=== PATIENT | female | born 1960 | race Two or more races ===

== ENCOUNTER 2020-02-15 02:17 | Inpatient (IN) | payer BC, MEDICAID ==
[~2020-02-15] VITALS: Ht 162.6 cm; Wt 59.1 kg
[2020-02-15] VITALS (10 sets, daily range): BP systolic 133–189; BP diastolic 63–106
--- NOTE | 2020-02-15 02:20 | NUR ---
PT CONTINUED ON NITRO GTT RUNNING AT 200MCG/MIN. SBP in the 200S. AWARE. NICARDIPINE GTT TO BE STARTED. OTHER VSS. PT HAS NO COMPLAINTS.
[2020-02-15] MEDS ORDERED: PLEASE ENTER ALLERGIES MC SCH (02:30)
[2020-02-15] MEDS ORDERED: NITROGLYCERIN/D5W PMX 250 ML IV PRN ×2 (02:30→04:30)
[2020-02-15] MEDS ORDERED: SODIUM CHLORIDE FLUSH 10ML SYR IVF ONE (02:30)
--- NOTE | 2020-02-15 02:46 | NUR ---
PIV PLACED IN R EJ. NICARDIPINE GTT STARTED AT 2.5MG/MIN. WCTM.
[2020-02-15 03:10] LABS: BASOPHILS % (AUTO) 1 % (0-1); EOSINOPHILS % (AUTO) 2 % (1-7); LYMPHOCYTES % (AUTO) 14 % (22-44); MEAN CORPUSCULAR HEMOGLOBIN 29.2 pg (27.0-34.8); MEAN CORPUSCULAR HGB CONC 31.5 g/dL (32.4-35.8); MEAN PLATELET VOLUME 7.5 fL (7.4-10.4); MONOCYTES % (AUTO) 9 % (2-9); NEUTROPHILS % (AUTO) 75 % (42-75); PLATELET COUNT 797 x10^3/uL (130-400); RED BLOOD COUNT 1.93 x10^6/uL (3.82-5.3); RED CELL DISTRIBUTION WIDTH 18.3 % (9.6-15.2)
[2020-02-15 03:14] LABS: ALANINE AMINOTRANSFERASE 14 U/L (12-78); ALBUMIN 2.6 g/dL (3.4-5.0); ANION GAP 16 mmol/L (5-15); CALCIUM 7.8 mg/dL (8.5-10.1); CHLORIDE 113 mmol/L (98-107)
--- NOTE | 2020-02-15 03:15 | NUR ---
VERBALIZED WITH EDMD BP GOALS. KEEP SBP <180. WCTM.
[2020-02-15 03:25] LABS: ALKALINE PHOSPHATASE 97 U/L (45-117); BILIRUBIN,TOTAL 0.4 mg/dL (0.2-1.0); T4 (THYROXINE) 9.6 mcg/dL (4.8-13.9); TOTAL PROTEIN 6.7 g/dL (6.4-8.2)
[2020-02-15 03:27] LABS: MD SCAN
[2020-02-15 03:38] LABS: TROPONIN I 0.025 ng/mL (0.000-0.045)
--- NOTE | 2020-02-15 03:59 | NUR ---
SYLVESTER CATHETER PLACED FOR STRICT I&Os PER MD ORDER. STERILE TECHNIQUE. PT TOLERATED WELL.
[2020-02-15] MEDS ORDERED: FUROSEMIDE 40 MG/4 ML IV ONE (04:00)
--- NOTE | 2020-02-15 04:08 | NUR ---
BP 133/77. PT ON 5MG/MIN NICARDIPINE AND 200MCG/MIN NITROGLYCERINE. ADMITTING MD AT BS. ADMITTING KEEP SBP BETWEEN 130-160, TITRATE GTTS ACCORDINGLY. WCTM.
--- NOTE | 2020-02-15 04:14 | NUR ---
PT CURRENTLY TAKING NO PRESCRIPTION MEDICATIONS AT HOME. PT DOES NOT REMEMBER HER BP MEDICATIONS SHE STOPPED TAKING LAST MARCH.
[2020-02-15] MEDS ORDERED: FUROSEMIDE 40 MG/4 ML ONE (04:17)
[2020-02-15] MEDS ORDERED: ZOLPIDEM 5MG TABLET PO PRN (04:30)
[2020-02-15] MEDS ORDERED: DIPHENHYDRAMINE 50 MG/ML, 1ML IVPush SCH (04:30)
[2020-02-15] MEDS ORDERED: GUAIFENESIN/DM 200-20MG, 10ML UDC PO PRN (04:30)
[2020-02-15] MEDS ORDERED: HYDROcodone/APAP 5/325 TABLET PO PRN (04:30)
[2020-02-15] MEDS ORDERED: ENALAPRILAT 1.25 MG/ML, 2ML IVPush PRN (04:30)
[2020-02-15] MEDS ORDERED: ACETAMINOPHEN 325 MG TABLET PO PRN (04:30)
[2020-02-15] MEDS ORDERED: METHOCARBAMOL 500 MG TABLET PO PRN (04:30)
[2020-02-15] MEDS ORDERED: morphine SULFATE 10 MG/ML, 1ML IVPush PRN (04:30)
[2020-02-15] MEDS ORDERED: ONDANSETRON 2MG/ML, 2ML IVPush PRN (04:30)
[2020-02-15 04:59] LABS: INTERNATIONAL NORMALIZED RATIO 1.5 (0.93-1.1); PROTHROMBIN TIME 15.8 Seconds (9.6-11.5)
[2020-02-15] MEDS ORDERED: NITROGLYCERIN/D5W PMX 250 ML ONE (05:07)
--- NOTE | 2020-02-15 05:25 | NUR ---
Report given to MILTON Ng.
[2020-02-15] MEDS: HEPARIN 5,000 UNITS/ML, 1ML SQ SCH ×3 (07:10→18:06)
[2020-02-15] MEDS: CARVEDILOL 6.25 MG TABLET PO SCH ×2 (07:10→18:06)
[2020-02-15] MEDS: DOXAZOSIN 2MG TABLET PO SCH (08:39)
[2020-02-15] MEDS ORDERED: LABETALOL 5MG/ML, 20ML ONE (12:02)
[2020-02-15] MEDS: LABETALOL 5MG/ML, 20ML IVPush PRN ×2 (12:07→17:03)
[2020-02-15] MEDS ORDERED: ERGOCALCIFEROL 50,000 UNIT CAPSULE PO SCH (14:30)
[2020-02-16 01:55] VITALS: BP 154/89
[2020-02-16 04:27] VITALS: BP 139/76
[2020-02-16 04:32] LABS: BASOPHILS % (AUTO) 1 % (0-1); EOSINOPHILS % (AUTO) 1 % (1-7); LYMPHOCYTES % (AUTO) 10 % (22-44); MEAN CORPUSCULAR HEMOGLOBIN 30.5 pg (27.0-34.8); MEAN CORPUSCULAR HGB CONC 34.5 g/dL (32.4-35.8); MEAN PLATELET VOLUME 7.6 fL (7.4-10.4); MONOCYTES % (AUTO) 9 % (2-9); NEUTROPHILS % (AUTO) 79 % (42-75); PLATELET COUNT 506 x10^3/uL (130-400); RED BLOOD COUNT 2.55 x10^6/uL (3.82-5.3); RED CELL DISTRIBUTION WIDTH 16.3 % (9.6-15.2)
[2020-02-16 04:40] LABS: % IRON SATURATION 49 % (20-55); ALBUMIN 2.5 g/dL (3.4-5.0); ANION GAP 8 mmol/L (5-15); CALCIUM 7.9 mg/dL (8.5-10.1); CHLORIDE 107 mmol/L (98-107); CREATININE 7.11 mg/dL (0.55-1.02); IRON LEVEL 69 mcg/dL (50-170); TOTAL IRON BINDING CAPACITY 142 mcg/dL (250-450)
[2020-02-16 05:56] LABS: MD SCAN
[2020-02-16] MEDS: CARVEDILOL 6.25 MG TABLET PO SCH ×2 (06:12→17:24)
[2020-02-16 07:57] VITALS: BP 161/91
[2020-02-16] MEDS: DOXAZOSIN 2MG TABLET PO SCH (08:48)
[2020-02-16] MEDS: HEPARIN 5,000 UNITS/ML, 1ML SQ SCH ×2 (08:49→21:20)
[2020-02-16 12:13] VITALS: BP 190/109
[2020-02-16] MEDS: LABETALOL 5MG/ML, 20ML IVPush PRN ×2 (12:13→17:24)
[2020-02-16 13:19] VITALS: BP 171/96
[2020-02-16] MEDS: DOCUSATE 100 MG CAPSULE PO PRN (17:23)
[2020-02-16 20:22] VITALS: BP 162/91
[2020-02-17 01:52] VITALS: BP 209/119
[2020-02-17] MEDS: LABETALOL 5MG/ML, 20ML IVPush PRN ×5 (01:59→17:44)
[2020-02-17 02:29] VITALS: BP 155/98
[2020-02-17] MEDS: CARVEDILOL 6.25 MG TABLET PO SCH (04:56)
[2020-02-17 07:14] LABS: ANION GAP 6 mmol/L (5-15); CALCIUM 7.5 mg/dL (8.5-10.1); CHLORIDE 106 mmol/L (98-107)
[2020-02-17 07:16] LABS: CREATININE 5.57 mg/dL (0.55-1.02)
[2020-02-17 08:07] VITALS: BP 210/114
[2020-02-17] MEDS: CALCITRIOL 0.5 MCG CAPSULE PO SCH (08:44)
[2020-02-17] MEDS: DOXAZOSIN 2MG TABLET PO SCH (08:46)
[2020-02-17] MEDS: HEPARIN 5,000 UNITS/ML, 1ML SQ SCH ×2 (08:46→20:11)
[2020-02-17] MEDS ORDERED: PHYTONADIONE 10 MG/ML, 1ML SQ ONE ×2 (10:30→13:00)
[2020-02-17] MEDS: AMLODIPINE 5 MG TABLET PO SCH (11:40)
[2020-02-17 11:50] LABS: INTERNATIONAL NORMALIZED RATIO 1.01 (0.93-1.1); PROTHROMBIN TIME 10.7 Seconds (9.6-11.5)
[2020-02-17 15:21] VITALS: BP 177/88
[2020-02-17] MEDS: FUROSEMIDE 80 MG TABLET PO SCH (17:44)
[2020-02-17] MEDS: CARVEDILOL 12.5 MG TABLET PO SCH (17:44)
[2020-02-17 19:35] VITALS: BP 162/80
[2020-02-18 01:34] VITALS: BP 165/81
[2020-02-18 05:49] VITALS: BP 186/94
[2020-02-18] MEDS: CARVEDILOL 12.5 MG TABLET PO SCH (05:53)
[2020-02-18 06:30] VITALS: BP 192/89
[2020-02-18 06:40] LABS: BASOPHILS % (AUTO) 1 % (0-1); EOSINOPHILS % (AUTO) 2 % (1-7); LYMPHOCYTES % (AUTO) 12 % (22-44); MEAN CORPUSCULAR HEMOGLOBIN 29.8 pg (27.0-34.8); MEAN PLATELET VOLUME 8.1 fL (7.4-10.4); MONOCYTES % (AUTO) 9 % (2-9); NEUTROPHILS % (AUTO) 77 % (42-75); PLATELET COUNT 431 x10^3/uL (130-400); RED BLOOD COUNT 2.54 x10^6/uL (3.82-5.3); RED CELL DISTRIBUTION WIDTH 17.2 % (9.6-15.2)
[2020-02-18 06:44] LABS: ANION GAP 11 mmol/L (5-15); CALCIUM 7.2 mg/dL (8.5-10.1); CHLORIDE 104 mmol/L (98-107); CREATININE 6.64 mg/dL (0.55-1.02)
[2020-02-18] MEDS: HEPARIN 5,000 UNITS/ML, 1ML SQ SCH ×2 (07:27→20:50)
[2020-02-18] MEDS: CALCITRIOL 0.5 MCG CAPSULE PO SCH (07:35)
[2020-02-18] MEDS: DOXAZOSIN 2MG TABLET PO SCH (07:36)
[2020-02-18] MEDS: FUROSEMIDE 80 MG TABLET PO SCH ×2 (07:38→17:04)
[2020-02-18] MEDS: AMLODIPINE 5 MG TABLET PO SCH (07:39)
[2020-02-18 07:59] LABS: MD SCAN
[2020-02-18] MEDS: LABETALOL 100 MG TABLET PO SCH ×2 (08:00→17:04)
[2020-02-18] MEDS: AMLODIPINE 10 MG TAB PO SCH (08:43)
[2020-02-18] MEDS ORDERED: POTASSIUM CHLORIDE 20 MEQ TAB.ER.PRT PO ONE (10:00)
[2020-02-18 12:47] VITALS: BP 131/99
[2020-02-18] MEDS ORDERED: LIDOCAINE 1%, 20ML ONE (13:13)
[2020-02-18] MEDS ORDERED: MIDAZOLAM 1 MG/ML, 5ML ONE (13:19)
[2020-02-18] MEDS ORDERED: FENTANYL PF 100 MCG/2ML ONE (13:19)
[2020-02-18] MEDS ORDERED: CEFAZOLIN PMX 1GM/50ML 50 ML ONE (13:19)
[2020-02-18] MEDS ORDERED: LIDOCAINE 1%, 10ML ONE (13:52)
[2020-02-18] MEDS ORDERED: POTASSIUM CHLORIDE 20 MEQ TAB.ER.PRT ONE (14:19)
[2020-02-18 20:19] VITALS: BP 147/81
[2020-02-19 00:47] VITALS: BP 159/89
[2020-02-19 06:19] VITALS: BP 143/89
[2020-02-19 06:56] VITALS: BP 159/74
[2020-02-19] MEDS: CALCITRIOL 0.5 MCG CAPSULE PO SCH (07:56)
[2020-02-19] MEDS: DOXAZOSIN 2MG TABLET PO SCH (07:56)
[2020-02-19] MEDS: AMLODIPINE 10 MG TAB PO SCH (07:57)
[2020-02-19] MEDS: LABETALOL 100 MG TABLET PO SCH ×2 (07:57→16:23)
[2020-02-19] MEDS: HEPARIN 5,000 UNITS/ML, 1ML SQ SCH ×2 (07:57→21:39)
[2020-02-19 08:46] LABS: BASOPHILS % (AUTO) 1 % (0-1); EOSINOPHILS % (AUTO) 1 % (1-7); LYMPHOCYTES % (AUTO) 11 % (22-44); MEAN CORPUSCULAR HEMOGLOBIN 30.6 pg (27.0-34.8); MEAN CORPUSCULAR HGB CONC 33.3 g/dL (32.4-35.8); MEAN PLATELET VOLUME 8.4 fL (7.4-10.4); MONOCYTES % (AUTO) 10 % (2-9); NEUTROPHILS % (AUTO) 78 % (42-75); PLATELET COUNT 436 x10^3/uL (130-400); RED BLOOD COUNT 2.65 x10^6/uL (3.82-5.3); RED CELL DISTRIBUTION WIDTH 16.4 % (9.6-15.2)
[2020-02-19 09:11] LABS: ANION GAP 8 mmol/L (5-15); CHLORIDE 108 mmol/L (98-107); CREATININE 4.58 mg/dL (0.55-1.02)
[2020-02-19 09:48] LABS: MD MORPH REVIEW ONLY
[2020-02-19 09:49] LABS: <PLATELET ESTIMATE> INCREASED; HYPOGRAN PLTS 1+
[2020-02-19 09:50] LABS: ANISOCYTOSIS 1+; LARGE PLATELETS 2+
[2020-02-19 12:10] VITALS: BP 133/77
[2020-02-19] MEDS: FUROSEMIDE 80 MG TABLET PO SCH (16:23)
[2020-02-19 18:45] VITALS: BP 110/62
[2020-02-20 01:51] VITALS: BP 145/81
[2020-02-20 07:13] VITALS: BP 163/82
[2020-02-20] MEDS: AMLODIPINE 10 MG TAB PO SCH (08:52)
[2020-02-20] MEDS: LABETALOL 100 MG TABLET PO SCH ×2 (08:55→18:07)
[2020-02-20] MEDS: FUROSEMIDE 80 MG TABLET PO SCH ×2 (08:56→17:00)
[2020-02-20] MEDS: HEPARIN 5,000 UNITS/ML, 1ML SQ SCH ×2 (08:56→20:53)
[2020-02-20] MEDS: CALCITRIOL 0.5 MCG CAPSULE PO SCH (08:56)
[2020-02-20] MEDS: DOXAZOSIN 2MG TABLET PO SCH (08:56)
[2020-02-20 11:20] VITALS: BP 110/64
[2020-02-20 13:01] VITALS: BP 136/76
[2020-02-20 20:44] VITALS: BP 149/74
[2020-02-21] VITALS (9 sets, daily range): BP systolic 97–125; BP diastolic 62–76
[2020-02-21 05:15] LABS: BASOPHILS % (AUTO) 1 % (0-1); EOSINOPHILS % (AUTO) 1 % (1-7); LYMPHOCYTES % (AUTO) 9 % (22-44); MEAN CORPUSCULAR HEMOGLOBIN 30.1 pg (27.0-34.8); MEAN CORPUSCULAR HGB CONC 33.1 g/dL (32.4-35.8); MEAN PLATELET VOLUME 8.1 fL (7.4-10.4); MONOCYTES % (AUTO) 12 % (2-9); NEUTROPHILS % (AUTO) 78 % (42-75); PLATELET COUNT 399 x10^3/uL (130-400)
[2020-02-21 05:29] LABS: ANION GAP 6 mmol/L (5-15); CALCIUM 8.5 mg/dL (8.5-10.1); CHLORIDE 103 mmol/L (98-107); CREATININE 3.88 mg/dL (0.55-1.02); MD NO
[2020-02-21] MEDS: AMLODIPINE 10 MG TAB PO SCH (09:45)
[2020-02-21] MEDS: FUROSEMIDE 80 MG TABLET PO SCH ×2 (09:45→17:52)
[2020-02-21] MEDS: CALCITRIOL 0.5 MCG CAPSULE PO SCH (09:45)
[2020-02-21] MEDS: DOXAZOSIN 2MG TABLET PO SCH (09:46)
[2020-02-21] MEDS: LABETALOL 100 MG TABLET PO SCH ×2 (09:59→17:49)
[2020-02-21] MEDS: HEPARIN 5,000 UNITS/ML, 1ML SQ SCH ×2 (09:59→21:41)
[2020-02-21] MEDS: DOCUSATE 100 MG CAPSULE PO PRN (21:43)
[2020-02-22] VITALS (7 sets, daily range): BP systolic 100–127; BP diastolic 59–75
[2020-02-22] MEDS: FUROSEMIDE 80 MG TABLET PO SCH (07:37)
[2020-02-22] MEDS: HEPARIN 5,000 UNITS/ML, 1ML SQ SCH ×2 (07:37→21:32)
[2020-02-22] MEDS: LABETALOL 100 MG TABLET PO SCH (08:29)
[2020-02-22] MEDS: AMLODIPINE 10 MG TAB PO SCH (13:06)
[2020-02-22] MEDS: DOXAZOSIN 2MG TABLET PO SCH (13:06)
[2020-02-22] MEDS: DOCUSATE 100 MG CAPSULE PO PRN (15:53)
[2020-02-23 01:06] VITALS: BP 133/63
[2020-02-23 05:02] LABS: ANION GAP 9 mmol/L (5-15); CALCIUM 8.8 mg/dL (8.5-10.1); CHLORIDE 102 mmol/L (98-107)
[2020-02-23 05:03] LABS: CREATININE 4.88 mg/dL (0.55-1.02)
[2020-02-23 07:22] VITALS: BP 127/78
[2020-02-23] MEDS: AMLODIPINE 10 MG TAB PO SCH (08:25)
[2020-02-23] MEDS: LABETALOL 100 MG TABLET PO SCH (08:25)
[2020-02-23] MEDS: HEPARIN 5,000 UNITS/ML, 1ML SQ SCH ×2 (08:25→21:28)
[2020-02-23 14:00] VITALS: BP 146/72
[2020-02-23] MEDS: DOCUSATE 100 MG CAPSULE PO PRN (15:37)
[2020-02-23 19:59] VITALS: BP 125/78
[2020-02-24 01:16] VITALS: BP 122/69
[2020-02-24 04:58] LABS: MEAN CORPUSCULAR HEMOGLOBIN 30.1 pg (27.0-34.8); MEAN CORPUSCULAR HGB CONC 33.4 g/dL (32.4-35.8); MEAN PLATELET VOLUME 8.6 fL (7.4-10.4); PLATELET COUNT 417 x10^3/uL (130-400); RED BLOOD COUNT 2.94 x10^6/uL (3.82-5.3); RED CELL DISTRIBUTION WIDTH 16.2 % (9.6-15.2)
[2020-02-24 05:05] LABS: ANION GAP 8 mmol/L (5-15); CALCIUM 8.7 mg/dL (8.5-10.1); CHLORIDE 101 mmol/L (98-107); CREATININE 7.11 mg/dL (0.55-1.02)
[2020-02-24 06:09] LABS: MD YES
[2020-02-24 06:12] LABS: <PLATELET ESTIMATE> INCREASED; ANISOCYTOSIS 1+; BASOS#(MANUAL) 0.17 x10^3/uL (0-0.1); BASOS% (MANUAL) 2 % (0-1); EOS#(MANUAL) 0.09 x10^3/uL (0.0-0.4); EOS% (MANUAL) 1 % (1-7); LARGE PLATELETS 1+; LYMPH#(MANUAL) 2.04 x10^3/uL (1-3.4); LYMPHS% (MANUAL) 24 % (22-44); MONOS#(MANUAL) 0.17 x10^3/uL (0.3-2.7); MONOS% (MANUAL) 2 % (2-9); OVALOCYTES 1+; SEG#(MANUAL) 6.04 x10^3/uL (1.8-6.8); SEGS% (MANUAL) 71 % (42-75)
[2020-02-24 07:40] VITALS: BP 119/81
[2020-02-24] MEDS: HEPARIN 5,000 UNITS/ML, 1ML SQ SCH ×2 (08:59→20:13)
[2020-02-24] MEDS: LABETALOL 100 MG TABLET PO SCH (08:59)
[2020-02-24] MEDS: AMLODIPINE 10 MG TAB PO SCH (08:59)
[2020-02-24 13:34] VITALS: BP 104/68
[2020-02-24 15:57] VITALS: BP 108/63
[2020-02-24 19:26] VITALS: BP 113/67
[2020-02-25 02:09] VITALS: BP 131/77
[2020-02-25 07:32] VITALS: BP 146/80
[2020-02-25 08:28] LABS: ANION GAP 10 mmol/L (5-15); CALCIUM 8.8 mg/dL (8.5-10.1); CHLORIDE 103 mmol/L (98-107); CREATININE 9.33 mg/dL (0.55-1.02)
[2020-02-25 08:35] LABS: BASOPHILS % (AUTO) 1 % (0-1); EOSINOPHILS % (AUTO) 0 % (1-7); LYMPHOCYTES % (AUTO) 9 % (22-44); MEAN CORPUSCULAR HEMOGLOBIN 29.7 pg (27.0-34.8); MEAN CORPUSCULAR HGB CONC 32.6 g/dL (32.4-35.8); MEAN PLATELET VOLUME 8.5 fL (7.4-10.4); MONOCYTES % (AUTO) 6 % (2-9); NEUTROPHILS % (AUTO) 83 % (42-75); PLATELET COUNT 298 x10^3/uL (130-400); RED BLOOD COUNT 3.11 x10^6/uL (3.82-5.3); RED CELL DISTRIBUTION WIDTH 15.7 % (9.6-15.2)
[2020-02-25 08:40] LABS: MD NO
[2020-02-25] MEDS: HEPARIN 5,000 UNITS/ML, 1ML SQ SCH ×2 (11:06→20:54)
[2020-02-25 12:40] VITALS: BP 116/76
[2020-02-25] MEDS: LABETALOL 100 MG TABLET PO SCH (13:02)
[2020-02-25] MEDS: AMLODIPINE 10 MG TAB PO SCH (13:02)
[2020-02-25 16:55] VITALS: BP 101/69
[2020-02-25 20:00] VITALS: BP 100/65
[2020-02-26 02:39] VITALS: BP 97/62
[2020-02-26 06:54] VITALS: BP 99/68
[2020-02-26] MEDS: HEPARIN 5,000 UNITS/ML, 1ML SQ SCH ×2 (08:43→20:32)
[2020-02-26 08:52] VITALS: BP 106/65
[2020-02-26] MEDS: LABETALOL 100 MG TABLET PO SCH (09:00)
[2020-02-26] MEDS: AMLODIPINE 10 MG TAB PO SCH (09:00)
[2020-02-26 12:12] VITALS: BP 114/78
[2020-02-26 17:22] VITALS: BP 104/65
[2020-02-26 19:19] VITALS: BP 100/70
[2020-02-27 00:58] VITALS: BP 116/78
[2020-02-27 06:51] VITALS: BP 91/62
[2020-02-27] MEDS: LABETALOL 100 MG TABLET PO SCH (09:00)
[2020-02-27] MEDS: AMLODIPINE 10 MG TAB PO SCH (09:00)
[2020-02-27] MEDS: HEPARIN 5,000 UNITS/ML, 1ML SQ SCH ×2 (10:12→21:24)
[2020-02-27 12:38] VITALS: BP 99/73
[2020-02-27] MEDS: DOCUSATE 100 MG CAPSULE PO PRN (21:20)
[2020-02-27 21:21] VITALS: BP 105/70
[2020-02-28] VITALS (7 sets, daily range): BP systolic 94–120; BP diastolic 60–85
[2020-02-28 04:51] LABS: BASOPHILS % (AUTO) 1 % (0-1); EOSINOPHILS % (AUTO) 1 % (1-7); LYMPHOCYTES % (AUTO) 15 % (22-44); MEAN CORPUSCULAR HGB CONC 32.8 g/dL (32.4-35.8); MONOCYTES % (AUTO) 11 % (2-9); NEUTROPHILS % (AUTO) 72 % (42-75); PLATELET COUNT 160 x10^3/uL (130-400); RED BLOOD COUNT 3.04 x10^6/uL (3.82-5.3); RED CELL DISTRIBUTION WIDTH 16.2 % (9.6-15.2)
[2020-02-28 04:59] LABS: MD NO
[2020-02-28 05:01] LABS: ALANINE AMINOTRANSFERASE 17 U/L (12-78); ALBUMIN 3.3 g/dL (3.4-5.0); ANION GAP 10 mmol/L (5-15); CALCIUM 9.2 mg/dL (8.5-10.1); CHLORIDE 106 mmol/L (98-107); CREATININE 5.13 mg/dL (0.55-1.02)
[2020-02-28 05:03] LABS: ALKALINE PHOSPHATASE 115 U/L (45-117); BILIRUBIN,TOTAL 0.9 mg/dL (0.2-1.0); TOTAL PROTEIN 7.9 g/dL (6.4-8.2)
[2020-02-28] MEDS: AMLODIPINE 10 MG TAB PO SCH (09:00)
[2020-02-28] MEDS: LABETALOL 100 MG TABLET PO SCH (09:00)
[2020-02-28] MEDS: HEPARIN 5,000 UNITS/ML, 1ML SQ SCH (10:51)
[2020-02-29 00:21] VITALS: BP 122/71
[2020-02-29] MEDS: HEPARIN 5,000 UNITS/ML, 1ML SQ SCH ×2 (00:23→09:00)
[2020-02-29 00:36] VITALS: BP 142/79
[2020-02-29] MEDS ORDERED: EPINEPHRINE 1 MG/ML, 1ML ONE ×2 (07:00→10:00)
[2020-02-29] MEDS ORDERED: EPINEPHRINE SYRINGE 0.1 MG/ML, 10ML ONE ×3 (07:00→10:00)
[2020-02-29 08:11] VITALS: BP 146/95
[2020-02-29] MEDS ORDERED: AMLODIPINE 5 MG TABLET PO SCH (09:00)
[2020-02-29] MEDS: EPINEPHRINE 5 MG in SODIUM CHLORIDE 0.9% 245 ML IV PRN (09:30)
[2020-02-29] MEDS: NOREPINEPHRINE 32 MG in SODIUM CHLORIDE 0.9% 218 ML IV PRN ×2 (09:35→15:43)
[2020-02-29] MEDS ORDERED: CODE BLUE RESPONSE XX ONE (09:45)
[2020-02-29] MEDS ORDERED: SODIUM BICARB 8.4%, 50ML SYRINGE ONE (09:45)
[2020-02-29] MEDS ORDERED: SUCCINYLCHOLINE 20 MG/ML, 10ML ONE (09:45)
[2020-02-29] MEDS ORDERED: CALCIUM CHLORIDE 10%, 10ML SYR ONE (09:45)
[2020-02-29] MEDS ORDERED: ETOMIDATE 20 MG/10 ML ONE (09:45)
[2020-02-29 09:48] LABS: MEAN CORPUSCULAR HEMOGLOBIN 29.4 pg (27.0-34.8); MEAN PLATELET VOLUME 8.1 fL (7.4-10.4); RED BLOOD COUNT 2.88 x10^6/uL (3.82-5.3); RED CELL DISTRIBUTION WIDTH 16.7 % (9.6-15.2)
[2020-02-29 09:59] LABS: MD YES; PLATELET COUNT 43 x10^3/uL (130-400)
[2020-02-29 10:00] LABS: ALANINE AMINOTRANSFERASE 184 U/L (12-78); ALBUMIN 2.6 g/dL (3.4-5.0); ANION GAP 17 mmol/L (5-15); CALCIUM 11.2 mg/dL (8.5-10.1); CHLORIDE 104 mmol/L (98-107); CREATININE 7.57 mg/dL (0.55-1.02)
[2020-02-29] MEDS ORDERED: SODIUM BICARB 8.4%, 50ML SYRINGE IVPush ONE (10:00)
[2020-02-29 10:01] LABS: ANISOCYTOSIS 1+; BAND#(MANUAL) 1.16 x10^3/uL; BANDS%(MANUAL) 8 % (0-7); LYMPH#(MANUAL) 8.85 x10^3/uL (1-3.4); LYMPHS% (MANUAL) 61 % (22-44); METAMYELOCYTES# (MANUAL) 0.29 x10^3/uL (0-0); METAMYELOCYTES% (MANUAL) 2 % (0-1); MONOS#(MANUAL) 0.29 x10^3/uL (0.3-2.7); MONOS% (MANUAL) 2 % (2-9); POLYCHROMASIA 1+; SEG#(MANUAL) 3.92 x10^3/uL (1.8-6.8); SEGS% (MANUAL) 27 % (42-75)
[2020-02-29 10:02] LABS: <PLATELET ESTIMATE> DECREASED; LARGE PLATELETS 1+; OVALOCYTES 1+
[2020-02-29 10:03] LABS: ALKALINE PHOSPHATASE 120 U/L (45-117); BILIRUBIN,TOTAL 0.6 mg/dL (0.2-1.0); TOTAL PROTEIN 6.5 g/dL (6.4-8.2)
[2020-02-29] MEDS ORDERED: PROPOFOL 100 ML IV ONE (10:05)
[2020-02-29] MEDS ORDERED: FENTANYL PF 100 MCG/2ML ONE (10:05)
[2020-02-29] MEDS: FENTANYL PF 100 MCG/2ML IVPush PRN ×3 (10:08→21:31)
[2020-02-29 11:54] LABS: FIBRINOGEN 254 mg/dL (200-340); PROTIME 11.7 Seconds (9.6-11.5); PTT 31 Seconds (25-31)
[2020-02-29 11:58] LABS: PLATELET (DIC) 41 x10^3/uL (130-400)
[2020-02-29] MEDS: INSULIN LISPRO 100 UNITS/ML, PEN SQ-INSULIN SCH ×3 (12:25→21:26)
[2020-02-29 12:40] LABS: D-DIMER (DIC) > 35.20 ug/mlFEU (0.00-0.52)
[2020-02-29] MEDS ORDERED: PHARMACOKINETIC CONSULTATION MC ONE (13:00)
[2020-02-29] MEDS ORDERED: VANCOMYCIN PER PHARMACY MC PRN (13:00)
[2020-02-29] MEDS ORDERED: PHARMACOKINETIC MONITORING MC PRN (13:00)
[2020-02-29 13:30] LABS: TRIGLYCERIDES 300 mg/dL (50-200)
[2020-02-29] MEDS ORDERED: VANCOMYCIN PMX 1GM/200ML 200 ML IV ONE (13:30)
[2020-02-29] MEDS ORDERED: NOREPINEPHRINE 8 MG in SODIUM CHLORIDE 0.9% 242 ML IV PRN (13:30)
[2020-02-29] MEDS ORDERED: LIDOCAINE-MPF 1%, 2ML ENDO PRN (13:30)
[2020-02-29] MEDS ORDERED: ONDANSETRON 2MG/ML, 2ML IV PRN (13:30)
[2020-02-29] MEDS ORDERED: PHARMACY MAY ADJ FOR RENAL FX MC SCH (13:30)
[2020-02-29] MEDS ORDERED: GLUCAGON 1 MG IM PRN (13:30)
[2020-02-29] MEDS ORDERED: DEXTROSE 4 GM TAB.CHEW PO PRN (13:30)
[2020-02-29] MEDS: PIPERACILLIN/TAZO/PMX 2.25GM 50 ML IVPB SCH ×2 (13:33→21:26)
[2020-02-29] MEDS: PROPOFOL 100 ML IV PRN (13:36)
[2020-02-29] MEDS: DEXTROSE 50%, 50ML SYRINGE IVPush PRN (20:58)
[2020-02-29] MEDS: SODIUM CHLORIDE FLUSH 10ML SYR IVF SCH (20:59)
[2020-02-29] MEDS ORDERED: VASOPRESSIN 20 UNIT in SODIUM CHLORIDE 0.9% 99 ML IV PRN (21:30)
[2020-03-01] MEDS: FENTANYL PF 100 MCG/2ML IVPush PRN ×5 (01:36→22:34)
[2020-03-01 04:00] VITALS: BP 82/57
[2020-03-01] MEDS: INSULIN LISPRO 100 UNITS/ML, PEN SQ-INSULIN SCH ×4 (04:00→22:00)
[2020-03-01 04:28] LABS: MEAN CORPUSCULAR HEMOGLOBIN 29.2 pg (27.0-34.8); MEAN CORPUSCULAR HGB CONC 32.1 g/dL (32.4-35.8); MEAN PLATELET VOLUME 10.2 fL (7.4-10.4); PLATELET COUNT 111 x10^3/uL (130-400); RED BLOOD COUNT 2.94 x10^6/uL (3.82-5.3); RED CELL DISTRIBUTION WIDTH 16.1 % (9.6-15.2)
[2020-03-01 04:38] LABS: ALANINE AMINOTRANSFERASE 775 U/L (12-78); ALBUMIN 2.6 g/dL (3.4-5.0); ALKALINE PHOSPHATASE 126 U/L (45-117); ANION GAP 14 mmol/L (5-15); BILIRUBIN, DIRECT 0.6 mg/dL (0.1-0.2); BILIRUBIN,INDIRECT 0.8 mg/dL (0.0-2.0); BILIRUBIN,TOTAL 1.4 mg/dL (0.2-1.0); CALCIUM 8.9 mg/dL (8.5-10.1); CHLORIDE 101 mmol/L (98-107); CREATININE 9.36 mg/dL (0.55-1.02); TOTAL PROTEIN 6.6 g/dL (6.4-8.2); VANCOMYCIN,RANDOM 29.7 mcg/mL
[2020-03-01] MEDS: PIPERACILLIN/TAZO/PMX 2.25GM 50 ML IVPB SCH ×3 (05:38→20:27)
[2020-03-01] MEDS: NOREPINEPHRINE 32 MG in SODIUM CHLORIDE 0.9% 218 ML IV PRN ×2 (05:58→20:27)
[2020-03-01 06:15] LABS: MD YES
[2020-03-01 06:19] LABS: BANDS%(MANUAL) 23 % (0-7); BASOS% (MANUAL) 1 % (0-1); LYMPHS% (MANUAL) 16 % (22-44); MONOS% (MANUAL) 5 % (2-9); SEGS% (MANUAL) 55 % (42-75)
[2020-03-01 06:20] LABS: <PLATELET ESTIMATE> DECREASED; ANISOCYTOSIS 1+; LARGE PLATELETS 1+; OVALOCYTES 1+; POLYCHROMASIA 1+
[2020-03-01] MEDS ORDERED: LIDOCAINE PF 2%, 5ML SQ ONE (08:30)
[2020-03-01] MEDS: DEXTROSE 50%, 50ML SYRINGE IVPush PRN ×2 (10:18→16:22)
[2020-03-01] MEDS: SODIUM CHLORIDE FLUSH 10ML SYR IVF SCH ×2 (10:18→20:27)
[2020-03-01] MEDS ORDERED: ARGATROBAN 250 MG in SODIUM CHLORIDE 0.9% 247.5 ML IV PRN (14:30)
[2020-03-01] MEDS ORDERED: ARGATROBAN/NACL 50 MG/50 ML 50 ML IV PRN (15:00)
[2020-03-01] MEDS ORDERED: PIPERACILLIN/TAZO 0.75 GM in SODIUM CHLORIDE 0.9% 50 ML IVPB PRN (17:00)
[2020-03-01] MEDS: PROPOFOL 100 ML IV PRN (18:00)
[2020-03-01] MEDS: MIDAZOLAM HCL 50 MG in SODIUM CHLORIDE 0.9% 40 ML IV PRN (22:52)
[2020-03-02] MEDS: DEXTROSE 50%, 50ML SYRINGE IVPush PRN ×3 (00:36→05:07)
[2020-03-02 04:00] VITALS: BP 98/60
[2020-03-02] MEDS: INSULIN LISPRO 100 UNITS/ML, PEN SQ-INSULIN SCH ×2 (04:00→11:02)
[2020-03-02] MEDS: EPINEPHRINE 5 MG in SODIUM CHLORIDE 0.9% 245 ML IV PRN (04:40)
[2020-03-02] MEDS: PIPERACILLIN/TAZO/PMX 2.25GM 50 ML IVPB SCH ×2 (04:45→13:42)
[2020-03-02] MEDS: MIDAZOLAM HCL 50 MG in SODIUM CHLORIDE 0.9% 40 ML IV PRN (05:08)
[2020-03-02 05:17] LABS: MEAN CORPUSCULAR HEMOGLOBIN 29.3 pg (27.0-34.8); MEAN CORPUSCULAR HGB CONC 31.1 g/dL (32.4-35.8); MEAN PLATELET VOLUME 10.4 fL (7.4-10.4); PLATELET COUNT 226 x10^3/uL (130-400); RED BLOOD COUNT 2.68 x10^6/uL (3.82-5.3); RED CELL DISTRIBUTION WIDTH 17.3 % (9.6-15.2)
[2020-03-02 05:24] LABS: ALBUMIN 2.3 g/dL (3.4-5.0); ANION GAP 25 mmol/L (5-15); CALCIUM 8.4 mg/dL (8.5-10.1); CHLORIDE 101 mmol/L (98-107)
[2020-03-02] MEDS ORDERED: SODIUM BICARBONATE 1 MEQ/ML, 50ML VIAL IVPush ONE ×2 (05:30→07:00)
[2020-03-02 05:41] LABS: ALANINE AMINOTRANSFERASE 3104 U/L (12-78); ALKALINE PHOSPHATASE 132 U/L (45-117); BILIRUBIN, DIRECT 1.6 mg/dL (0.1-0.2); BILIRUBIN,INDIRECT 1.1 mg/dL (0.0-2.0); BILIRUBIN,TOTAL 2.7 mg/dL (0.2-1.0); TOTAL PROTEIN 6.5 g/dL (6.4-8.2)
[2020-03-02 05:57] LABS: MD YES
[2020-03-02 05:59] LABS: ANISOCYTOSIS 1+; BAND#(MANUAL) 6.27 x10^3/uL; BANDS%(MANUAL) 26 % (0-7); LYMPH#(MANUAL) 1.93 x10^3/uL (1-3.4); LYMPHS% (MANUAL) 8 % (22-44); METAMYELOCYTES# (MANUAL) 0.24 x10^3/uL (0-0); METAMYELOCYTES% (MANUAL) 1 % (0-1); MONOS#(MANUAL) 1.93 x10^3/uL (0.3-2.7); MONOS% (MANUAL) 8 % (2-9); OVALOCYTES 1+; POLYCHROMASIA 1+; SEG#(MANUAL) 13.74 x10^3/uL (1.8-6.8); SEGS% (MANUAL) 57 % (42-75)
[2020-03-02 06:00] LABS: <PLATELET ESTIMATE> ADEQUATE; LARGE PLATELETS 1+
[2020-03-02] MEDS ORDERED: DEXTROSE 50%, 50ML SYRINGE IVPush ONE (07:00)
[2020-03-02] MEDS ORDERED: INSULIN REGULAR 100 UNITS/ML, 3ML VIAL IVPush ONE (07:00)
[2020-03-02] MEDS ORDERED: SODIUM ZIRCONIUM CYCLOSILICATE 10 GM PO ONE (07:00)
[2020-03-02] MEDS: SODIUM CHLORIDE FLUSH 10ML SYR IVF SCH (07:30)
[2020-03-02] MEDS ORDERED: AMIODARONE 150 MG in DEXTROSE 5% 100 ML IV ONE (08:30)
[2020-03-02] MEDS ORDERED: AMIODARONE 450 MG in DEXTROSE 5% 241 ML IV PRN (08:30)
[2020-03-02] MEDS ORDERED: FILTER 0.22 MICRON FOR AMIODARONE IV PRN (09:00)
[2020-03-02] MEDS ORDERED: LORazepam 2 MG/ML, 1ML IVPush PRN (13:00)
[2020-03-02] MEDS ORDERED: MORPHINE SULFATE 4 MG/ML, 1ML IV ONE (13:00)
[2020-03-02] MEDS ORDERED: MORPHINE SULFATE 4 MG/ML, 1ML IVPush PRN (13:00)
[2020-03-02] MEDS ORDERED: LORazepam 2 MG/ML, 1ML IV ONE (13:00)
[2020-03-03] MEDS ORDERED: PANTOPRAZOLE 40 MG IV IVPush SCH (09:30)
== END 2020-03-02 14:39 | disposition expired | DRG 291 ==
LOC: ED 02:58 → EDIP 03:54 → CCU 05:44 → 4WST 02-17 17:41 → CCU 02-29 09:27
PROVIDERS: ADMIT Internal Medicine; ATTEND Hospitalist
PROC: 5A1D70Z Performance of Urinary Filtration, Intermittent, Less than 6 Hours Per Day (ICD-10-PCS; principal; 2020-02-15)
PROC: 30233N1 Transfusion of Nonautologous Red Blood Cells into Peripheral Vein, Percutaneous Approach (ICD-10-PCS; 2020-02-15)
PROC: 02HV33Z Insertion of Infusion Device into Superior Vena Cava, Percutaneous Approach (ICD-10-PCS; 2020-02-15)
PROC: B548ZZA Ultrasonography of Superior Vena Cava, Guidance (ICD-10-PCS; 2020-02-15)
PROC: 5A1D70Z Performance of Urinary Filtration, Intermittent, Less than 6 Hours Per Day (ICD-10-PCS; 2020-02-16)
PROC: 5A1D70Z Performance of Urinary Filtration, Intermittent, Less than 6 Hours Per Day (ICD-10-PCS; 2020-02-18)
PROC: 0JH63XZ Insertion of Tunneled Vascular Access Device into Chest Subcutaneous Tissue and Fascia, Percutaneous Approach (ICD-10-PCS; 2020-02-18)
PROC: 02HV33Z Insertion of Infusion Device into Superior Vena Cava, Percutaneous Approach (ICD-10-PCS; 2020-02-18)
PROC: B5181ZA Fluoroscopy of Superior Vena Cava using Low Osmolar Contrast, Guidance (ICD-10-PCS; 2020-02-18)
PROC: B548ZZA Ultrasonography of Superior Vena Cava, Guidance (ICD-10-PCS; 2020-02-18)
PROC: 5A1D70Z Performance of Urinary Filtration, Intermittent, Less than 6 Hours Per Day (ICD-10-PCS; 2020-02-20)
PROC: 5A1D70Z Performance of Urinary Filtration, Intermittent, Less than 6 Hours Per Day (ICD-10-PCS; 2020-02-22)
PROC: 5A1D70Z Performance of Urinary Filtration, Intermittent, Less than 6 Hours Per Day (ICD-10-PCS; 2020-02-25)
PROC: 5A1D70Z Performance of Urinary Filtration, Intermittent, Less than 6 Hours Per Day (ICD-10-PCS; 2020-02-26)
PROC: 5A1D70Z Performance of Urinary Filtration, Intermittent, Less than 6 Hours Per Day (ICD-10-PCS; 2020-02-27)
PROC: 02HV33Z Insertion of Infusion Device into Superior Vena Cava, Percutaneous Approach (ICD-10-PCS; 2020-02-29)
PROC: B5181ZA Fluoroscopy of Superior Vena Cava using Low Osmolar Contrast, Guidance (ICD-10-PCS; 2020-02-29)
PROC: 5A1945Z Respiratory Ventilation, 24-96 Consecutive Hours (ICD-10-PCS; 2020-02-29)
PROC: 0W9930Z Drainage of Right Pleural Cavity with Drainage Device, Percutaneous Approach (ICD-10-PCS; 2020-03-01)
DX: I13.2 Hypertensive heart and chronic kidney disease with heart failure and with stage 5 chronic kidney disease, or end stage renal disease (principal); I50.43 Acute on chronic combined systolic (congestive) and diastolic (congestive) heart failure; N18.6 End stage renal disease; G93.41 Metabolic encephalopathy; E43 Unspecified severe protein-calorie malnutrition; N17.0 Acute kidney failure with tubular necrosis; A41.9 Sepsis, unspecified organism; J18.9 Pneumonia, unspecified organism; J93.0 Spontaneous tension pneumothorax; J96.01 Acute respiratory failure with hypoxia; R65.21 Severe sepsis with septic shock; I16.1 Hypertensive emergency; N25.81 Secondary hyperparathyroidism of renal origin; E87.2 Acidosis; I42.9 Cardiomyopathy, unspecified; I46.9 Cardiac arrest, cause unspecified; D50.9 Iron deficiency anemia, unspecified; E55.9 Vitamin D deficiency, unspecified; E87.8 Other disorders of electrolyte and fluid balance, not elsewhere classified; I08.1 Rheumatic disorders of both mitral and tricuspid valves; I77.819 Aortic ectasia, unspecified site; Z99.2 Dependence on renal dialysis; D63.1 Anemia in chronic kidney disease; D69.6 Thrombocytopenia, unspecified; E87.5 Hyperkalemia; I08.3 Combined rheumatic disorders of mitral, aortic and tricuspid valves; I48.91 Unspecified atrial fibrillation; J32.0 Chronic maxillary sinusitis; I99.8 Other disorder of circulatory system; K75.89 Other specified inflammatory liver diseases; Z66 Do not resuscitate; Z82.49 Family history of ischemic heart disease and other diseases of the circulatory system; Z87.891 Personal history of nicotine dependence; Z91.14 Patient's other noncompliance with medication regimen
CPT/HCPCS: 32557; 36415; 36600; 96374; 96375; 99291; J3490; 36430; 36556; 36558; 36565; 70450; 70551; 71045; 76000; 76770; 76937; 80048; 80053; 80069; 80076; 80200; 80202; 82306; 82533; 82607; 82728; 82803; 82947; 82962; 83540; 83550; 83605; 83735; 83880; 83970; 84100; 84132; 84436; 84443; 84478; 84484; 85014; 85018; 85025; 85049; 85379; 85384; 85610; 85730; 86022; 86480; 86592; 86704; 86706; 86850; 86900; 86923; 87040; 87070; 87081; 87205; 87340; 90935; 92950; 93005; 93306; 93931; 94002; 94003; G0378; J0171; J0690; J1644; J1815; J1940; J2250; J2543; J2704; J3010; J3370; J7060; C1729; C1750; C1751; C1769; C1894; G0365; J0282; J0330; J0883; J1642; J2060; J2270; J7050; P9016